=== PATIENT | male | born 1995 | race Caucasian/White ===

== ENCOUNTER 2016-08-02 23:39 | Emergency (ER) | payer OTHER ==
--- NOTE | 2016-08-03 01:04 | ED CLINICAL REPORT ---
Clinical Report - Physicians/Mid Levels [facility] [address] [place] [address] 08/02/2016 23:39 Patient: KACEY GUERRA Time Seen: 23:52. Arrived- By private vehicle. Historian- patient. HISTORY OF PRESENT ILLNESS Chief Complaint: Injury to right thigh. The injury happened just prior to arrival. Occurred at home. The patient sustained a laceration (razor). Patient is experiencing mild pain. No other injury. REVIEW OF SYSTEMS The patient sustained a single laceration to the left thigh. No chills, fever, sweats, calf pain or chest pain. No cough, difficulty breathing, pedal edema, palpitations or abdominal pain. No constipation, diarrhea, nausea, vomiting or urinary problems. All systems otherwise negative, except as recorded above. SOCIAL HISTORY Current every day light tobacco smoker (cigarette)- less than 1/2 a pack per day. History of drug use: marijuana. No alcohol use. FAMILY HISTORY No significant family medical history. ADDITIONAL NOTES The nursing notes have been reviewed. PHYSICAL EXAM Vital Signs: 08/02/2016 23:57 BP: 137/83. HR: 104. RR: 18. O2 saturation: 100%. Temp: 98.7 F. Pain level now: 0/10. Have been reviewed. Appearance: Alert. Head: Head atraumatic. Eyes: Pupils equal, round and reactive to light. ENT: Pharynx normal. Neck: Neck supple. CVS: Heart sounds normal. Respiratory: Breath sounds normal. Abdomen: No visible injury. Back: ROM normal. Skin: Skin warm and dry. Extremities: Left thigh: subcutaneous 0.5 cm laceration. SEE LACERATION PROCEDURE NOTE #1. Lower extremity exam otherwise negative. Extremities otherwise negative. Gait: Normal gait. Neuro, Vascular and Tendons: Vascular status intact. Sensation intact. Motor intact. Tendon function intact. PROGRESS AND PROCEDURES Laceration Repair: Location: left thigh. Time-out completed immediately before the procedure. Length: 0.5cm. Complexity: simple (closed with tissue adhesive). Wound depth/shape- linear. Distal neuro/vascular/tendon status normal. Prepped with Hibiclens. Wound explored and cleansed. Closure of skin. Skin adhesive used. Post-procedure: he is stable and there are no complications. Bleeding is controlled. Tetanus immunization given. Course of Care: Patient is stable. Patient/family counseled. Old medical records reviewed. Disposition: Discharged. Condition: stable. CLINICAL IMPRESSION Single superficial laceration to the left thigh. INSTRUCTIONS Warnings: COMPLICATIONS: Complications from this condition include: possible infection. Future problems may include infection, scarring and pain. TETANUS: You were given a tetanus shot during your visit. Make a note for future reference. GENERAL WARNINGS: Return or contact your physician immediately if your condition worsens or changes unexpectedly, if not improving as expected, or if other problems arise. Follow-up: Follow up with your doctor as needed. Understanding of the discharge instructions verbalized by patient. (Electronically signed by Fernando Castillo MD 08/03/2016 2:38)
--- NOTE | 2016-08-03 01:04 | ED NURSING NOTES ---
Clinical Report - Nurses [facility] [address] 08/02/2016 23:39 Patient: KACEY GUERRA TRIAGE Triage time 23:57 Aug 02 2016. Chief Complaint: INJURY TO THE LEFT THIGH. Alert. No acute distress. SEPSIS SCREEN: Sepsis Screen. Negative (no infection suspected/documented). --00:00 Jorge Ye R.N. 23:57 08/02/16. BP: 137/83. HR: 104. RR: 18. O2 saturation: 100% on room air. Temp: 98.7 F. Pain level now: 0/10. --00:00 Jorge Ye R.N. Weight: 61.2 kg stated. Height/Length: 67 inches Per Patient. BMI: 21.2. --23:57 Jorge Ye R.N. Medications None. --23:58 Jorge Ye R.N. Allergies No Known Drug Allergy. --23:58 Jorge Ye R.N. History Arrived by private vehicle. Historian: patient. This occurred today. He sustained a laceration. ( Pt sliced his thigh earlier today with a razor blade while cutting burlap and planting some trees.). Treatment APPRENTICE COSMETOLOGIST: None. PAST MEDICAL HX: Tetanus status: unknown. Immunizations: up-to-date. SOCIAL HX: Current every day light tobacco smoker- less than 1/2 a pack per day. History of drug use: marijuana. No alcohol use. No infectious disease exposure. ABUSE ASSESSMENT: No report of abuse. SELF HARM ASSESSMENT: A self harm assessment was performed. The patient answered "no" to the question "Have you recently had thoughts about harming or killing others?". FALL RISK ASSESSMENT: Fall risk assessment completed. No fall risk identified. NUTRITIONAL RISK ASSESSMENT: The nutritional risk assessment revealed no deficiencies. FUNCTIONAL ASSESSMENT: Functional assessment: no impairments noted. LEARNING NEEDS ASSESSMENT: The learning needs assessment revealed no barriers. SKIN INTEGRITY ASSESSMENT: Skin integrity risk assessment completed. No skin integrity risk identified. --00:00 Jorge Ye R.N. PROBLEMS: Abscess. --23:58 Jorge Ye R.N. Interventions ID band on patient. To treatment room. --00:00 Jorge Ye R.N. PHYSICAL ASSESSMENT Ambulatory to room. GENERAL / NEURO / PSYCH: Oriented X 4. Alert. Appears in no acute distress. EXTREMITIES: Capillary refill is less than 2 seconds in the extremities. Extremity pulses are within normal limits. Extremities exhibit normal ROM. Neuro-vascular status intact to the extremity. Normal gait. Left thigh. SKIN: Skin is warm and dry. Small superficial laceration. --00:04 Jorge Ye R.N. NURSING PROGRESS NOTES The plan of care for this patient has been created. Extremity elevated. Patient gowned. Reassurance given. Two patient identifiers checked. Call light placed in reach. Bed placed in lowest position. Patient ready for evaluation- ED physician notified. --00:04 Jorge Ye R.N. Wound cleansed with sterile saline. --00:07 Jorge Ye R.N. 00:28 08/03/2016 TDAP IM 0.5 mL given. (Lot#: [id number], expiration date: 07/13/2018, Spool Sorter: sanofi pasteur). Given in the left deltoid. Allergies verified and confirmed 5 rights. --00:28 Jorge Ye R.N. WOUND REPAIR: Wound repair performed by ED physician. The wound is located on the left thigh. The wound is linear. Preparation. Wound cleansed with sterile saline and irrigated with sterile saline. Procedure: wound repaired with skin adhesive. Post-procedure: he was stable, no complications, bleeding controlled and neuro-vascular status intact distal to wound. ( 10 minutes). --01:11 Jorge Ye R.N. 01:09 08/03/2016 TDAP IM Response: no adverse reaction. --01:14 Jorge Ye R.N. DISPOSITION / DISCHARGE 01:10 08/03/16. BP: 118/65. HR: 93. RR: 16. O2 saturation: 98% on room air. Temp: 98.4 F. Pain level now: 0/10. --01:10 Jorge Ye R.N. Departure time: 01:12 Aug 03 2016. Condition at departure: improved and stable. The goals identified in the patient's plan of care were met. No learning barriers present. Discharge instructions provided and reviewed with the patient. Patient verbalized understanding. Written instructions provided in Cypriot. The patient was discharged home. He left the Emergency Department ambulatory and via private vehicle. Patient driving. ( Pt left in stable condition, ambulatory, VSS, Pt is his own ride home.). --01:12 Jorge Ye R.N. Locked/Released at 08/03/2016 1:25 by Jorge Ye R.N.
--- NOTE | 2016-08-03 01:04 | ED CLINICAL REPORT ---
Clinical Report - Physicians/Mid Levels [facility] [address] [place] [address] 08/02/2016 23:39 Patient: KACEY GUERRA Time Seen: 23:52. Arrived- By private vehicle. Historian- patient. HISTORY OF PRESENT ILLNESS Chief Complaint: Injury to right thigh. The injury happened just prior to arrival. Occurred at home. The patient sustained a laceration (razor). Patient is experiencing mild pain. No other injury. REVIEW OF SYSTEMS The patient sustained a single laceration to the left thigh. No chills, fever, sweats, calf pain or chest pain. No cough, difficulty breathing, pedal edema, palpitations or abdominal pain. No constipation, diarrhea, nausea, vomiting or urinary problems. All systems otherwise negative, except as recorded above. SOCIAL HISTORY Current every day light tobacco smoker (cigarette)- less than 1/2 a pack per day. History of drug use: marijuana. No alcohol use. FAMILY HISTORY No significant family medical history. ADDITIONAL NOTES The nursing notes have been reviewed. PHYSICAL EXAM Vital Signs: 08/02/2016 23:57 BP: 137/83. HR: 104. RR: 18. O2 saturation: 100%. Temp: 98.7 F. Pain level now: 0/10. Have been reviewed. Appearance: Alert. Head: Head atraumatic. Eyes: Pupils equal, round and reactive to light. ENT: Pharynx normal. Neck: Neck supple. CVS: Heart sounds normal. Respiratory: Breath sounds normal. Abdomen: No visible injury. Back: ROM normal. Skin: Skin warm and dry. Extremities: Left thigh: subcutaneous 0.5 cm laceration. SEE LACERATION PROCEDURE NOTE #1. Lower extremity exam otherwise negative. Extremities otherwise negative. Gait: Normal gait. Neuro, Vascular and Tendons: Vascular status intact. Sensation intact. Motor intact. Tendon function intact. PROGRESS AND PROCEDURES Laceration Repair: Location: left thigh. Time-out completed immediately before the procedure. Length: 0.5cm. Complexity: simple (closed with tissue adhesive). Wound depth/shape- linear. Distal neuro/vascular/tendon status normal. Prepped with Hibiclens. Wound explored and cleansed. Closure of skin. Skin adhesive used. Post-procedure: he is stable and there are no complications. Bleeding is controlled. Tetanus immunization given. Course of Care: Patient is stable. Patient/family counseled. Old medical records reviewed. Disposition: Discharged. Condition: stable. CLINICAL IMPRESSION Single superficial laceration to the left thigh. INSTRUCTIONS Warnings: COMPLICATIONS: Complications from this condition include: possible infection. Future problems may include infection, scarring and pain. TETANUS: You were given a tetanus shot during your visit. Make a note for future reference. GENERAL WARNINGS: Return or contact your physician immediately if your condition worsens or changes unexpectedly, if not improving as expected, or if other problems arise. Follow-up: Follow up with your doctor as needed. Understanding of the discharge instructions verbalized by patient. (Electronically signed by Fernando Castillo MD 08/03/2016 2:38)
--- NOTE | 2016-08-03 01:04 | ED ORDER SUMMARY ---
..... Patient: KACEY GUERRA OrderSheet [facility] VisitID: [id number] [address] [place] [address] 21y, M Registration Date/Time: 08/02/2016 ORDER SHEET Weight: 61.2 kg (stated) Allergies: No Known Drug Allergy GENERAL ORDERS: MEDICATION ORDERS: Tdap IM 0.5 mL (per protocol) (00:22 08/03/2016 MCook R.N. per protocol) (Ack 0:22 MCook R.N.) (0:28 MCook R.N.) Tdap IM 0.5 mL (NOW) (00:59 08/03/2016 Robert BARBOSA) (Cancelled: Other0:59 Robert BARBOSA) IV FLUIDS: ORDER SHEET NOTES: [Electronically signed by Jorge Ye R.N. (:08/03/2016)] [Electronically signed by Fernando Castillo MD (02:38 08/03/2016)] [Electronically locked/signed by Jorge Ye R.N. (:08/03/2016)]
--- NOTE | 2016-08-03 01:04 | ED ORDER SUMMARY ---
..... Patient: KACEY GUERRA OrderSheet [facility] VisitID: [id number] [address] [place] [address] 21y, M Registration Date/Time: 08/02/2016 ORDER SHEET Weight: 61.2 kg (stated) Allergies: No Known Drug Allergy GENERAL ORDERS: MEDICATION ORDERS: Tdap IM 0.5 mL (per protocol) (00:22 08/03/2016 MCook R.N. per protocol) (Ack 0:22 MCook R.N.) (0:28 MCook R.N.) Tdap IM 0.5 mL (NOW) (00:59 08/03/2016 Robert BARBOSA) (Cancelled: Other0:59 Robert BARBOSA) IV FLUIDS: ORDER SHEET NOTES: [Electronically signed by Jorge Ye R.N. (:08/03/2016)] [Electronically signed by Fernando Castillo MD (02:38 08/03/2016)] [Electronically locked/signed by Jorge Ye R.N. (:08/03/2016)]
--- NOTE | 2016-08-03 01:04 | ED NURSING NOTES ---
Clinical Report - Nurses [facility] [place] [address] 08/02/2016 23:39 Patient: KACEY GUERRA TRIAGE Triage time 23:57 Aug 02 2016. Chief Complaint: INJURY TO THE LEFT THIGH. Alert. No acute distress. SEPSIS SCREEN: Sepsis Screen. Negative (no infection suspected/documented). --00:00 Jorge Ye R.N. 23:57 08/02/16. BP: 137/83. HR: 104. RR: 18. O2 saturation: 100% on room air. Temp: 98.7 F. Pain level now: 0/10. --00:00 Jorge Ye R.N. Weight: 61.2 kg stated. Height/Length: 67 inches Per Patient. BMI: 21.2. --23:57 Jorge Ye R.N. Medications None. --23:58 Jorge Ye R.N. Allergies No Known Drug Allergy. --23:58 Jorge Ye R.N. History Arrived by private vehicle. Historian: patient. This occurred today. He sustained a laceration. ( Pt sliced his thigh earlier today with a razor blade while cutting burlap and planting some trees.). Treatment DIE SET UP WORKER: None. PAST MEDICAL HX: Tetanus status: unknown. Immunizations: up-to-date. SOCIAL HX: Current every day light tobacco smoker- less than 1/2 a pack per day. History of drug use: marijuana. No alcohol use. No infectious disease exposure. ABUSE ASSESSMENT: No report of abuse. SELF HARM ASSESSMENT: A self harm assessment was performed. The patient answered "no" to the question "Have you recently had thoughts about harming or killing others?". FALL RISK ASSESSMENT: Fall risk assessment completed. No fall risk identified. NUTRITIONAL RISK ASSESSMENT: The nutritional risk assessment revealed no deficiencies. FUNCTIONAL ASSESSMENT: Functional assessment: no impairments noted. LEARNING NEEDS ASSESSMENT: The learning needs assessment revealed no barriers. SKIN INTEGRITY ASSESSMENT: Skin integrity risk assessment completed. No skin integrity risk identified. --00:00 Jorge Ye R.N. PROBLEMS: Abscess. --23:58 Jorge Ye R.N. Interventions ID band on patient. To treatment room. --00:00 Jorge Ye R.N. PHYSICAL ASSESSMENT Ambulatory to room. GENERAL / NEURO / PSYCH: Oriented X 4. Alert. Appears in no acute distress. EXTREMITIES: Capillary refill is less than 2 seconds in the extremities. Extremity pulses are within normal limits. Extremities exhibit normal ROM. Neuro-vascular status intact to the extremity. Normal gait. Left thigh. SKIN: Skin is warm and dry. Small superficial laceration. --00:04 Jorge Ye R.N. NURSING PROGRESS NOTES The plan of care for this patient has been created. Extremity elevated. Patient gowned. Reassurance given. Two patient identifiers checked. Call light placed in reach. Bed placed in lowest position. Patient ready for evaluation- ED physician notified. --00:04 Jorge Ye R.N. Wound cleansed with sterile saline. --00:07 Jorge Ye R.N. 00:28 08/03/2016 TDAP IM 0.5 mL given. (Lot#: [id number], expiration date: 07/13/2018, Carbon Coater Machine Operator: sanofi pasteur). Given in the left deltoid. Allergies verified and confirmed 5 rights. --00:28 Jorge Ye R.N. WOUND REPAIR: Wound repair performed by ED physician. The wound is located on the left thigh. The wound is linear. Preparation. Wound cleansed with sterile saline and irrigated with sterile saline. Procedure: wound repaired with skin adhesive. Post-procedure: he was stable, no complications, bleeding controlled and neuro-vascular status intact distal to wound. ( 10 minutes). --01:11 Jorge Ye R.N. 01:09 08/03/2016 TDAP IM Response: no adverse reaction. --01:14 Jorge Ye R.N. DISPOSITION / DISCHARGE 01:10 08/03/16. BP: 118/65. HR: 93. RR: 16. O2 saturation: 98% on room air. Temp: 98.4 F. Pain level now: 0/10. --01:10 Jorge Ye R.N. Departure time: 01:12 Aug 03 2016. Condition at departure: improved and stable. The goals identified in the patient's plan of care were met. No learning barriers present. Discharge instructions provided and reviewed with the patient. Patient verbalized understanding. Written instructions provided in Cymraes. The patient was discharged home. He left the Emergency Department ambulatory and via private vehicle. Patient driving. ( Pt left in stable condition, ambulatory, VSS, Pt is his own ride home.). --01:12 Jorge Ye R.N. Locked/Released at 08/03/2016 1:25 by Jorge Ye R.N.
--- NOTE | 2016-08-03 02:38 | ED MED RECONCILIATION SUMMARY ---
Patient: KACEY GUERRA Medication Reconciliation Report [facility] VisitID: [id number] [address] [place] [address] 21y, M Registration Date/Time: 08/02/2016 Weight: 61.2 kg Height/Length: 67 in. BMI: 21.2 ALLERGIES: No Known Drug Allergy The patient's Home Medications are listed below: NONE. The source(s) of the original Home Medication information: Not obtained. The following Medications were given to the patient in the Emergency Department: TDAP [IM] IM 0.5 mL, administered: 08/03/2016 12:28:00 AM The following Medications were prescribed to the patient: None.
--- NOTE | 2016-08-03 02:38 | ED MAR SUMMARY ---
..... Medication Administration Record [facility] [address] [place] [address] Patient: KACEY GUERRA Visit ID: [id number] 21y, M Weight: 61.2 kg Height/Length: 67 in BMI: 21.2 ALLERGIES: No Known Drug Allergy Given 00:28 08/03/2016 Jorge Ye R.N. Medication Administered: TDAP [IM], Dose: 0.5 mL IM. Medication Ordered: Tdap IM 0.5 mL (per protocol).
--- NOTE | 2016-08-03 02:38 | ED MAR SUMMARY ---
..... Medication Administration Record [facility] [address] [place] [address] Patient: KACEY GUERRA Visit ID: [id number] 21y, M Weight: 61.2 kg Height/Length: 67 in BMI: 21.2 ALLERGIES: No Known Drug Allergy Given 00:28 08/03/2016 Jorge Ye R.N. Medication Administered: TDAP [IM], Dose: 0.5 mL IM. Medication Ordered: Tdap IM 0.5 mL (per protocol).
--- NOTE | 2016-08-03 02:38 | ED DISCHARGE INSTRUCTIONS ---
Patient: KACEY GUERRA General Instructions [facility] VisitID: [id number] [place] [address] 21y, M Registration Date/Time: 08/02/2016 Single superficial laceration to the left thigh. INSTRUCTIONS Warnings: COMPLICATIONS: Complications from this condition include: possible infection. Future problems may include infection, scarring and pain. TETANUS: You were given a tetanus shot during your visit. Make a note for future reference. GENERAL WARNINGS: Return or contact your physician immediately if your condition worsens or changes unexpectedly, if not improving as expected, or if other problems arise. Follow-up: Follow up with your doctor as needed. Understanding of the discharge instructions verbalized by patient. ADDITIONAL INFORMATION Laceration(Skin Glue) A laceration is a cut through the skin. You have a laceration that has been closed with a type of skin glue. Home Care Medications: Acetaminophen (Tylenol) or ibuprofen (Motrin, Advil) may be taken for pain, unless another pain medicine was prescribed. NOTE: If you have chronic liver or kidney disease or ever had a stomach ulcer or GI bleeding, talk with your doctor before using these medications. General Care: Keep the wound clean and dry. You may shower or bathe as usual, but do not use soaps, lotions, or ointments on the wound area. Do not scrub the wound. After bathing, pat the wound dry with a soft towel. If a bandage was applied and it becomes wet or dirty, replace it. Otherwise, change the bandage every 24 hours. Do not scratch, rub, or pick at the film. Do not place tape directly over the film. Do not apply liquids (such as peroxide), ointments, or creams to the wound while the film is in place. Most skin wounds heal without problems. However, an infection sometimes occurs despite proper treatment. Therefore, watch for the signs of infection listed below. Follow Up as directed by the doctor or our staff. The skin glue film will fall off naturally in 5 to 10 days. Get Prompt Medical Attention if any of the following occur: Signs of infection: Fever of 100.4F (38C) or higher, or as directed by your healthcare provider Increasing pain in the wound Increasing redness or swelling Pus coming from the wound Wound bleeds more than a small amount or bleeding doesnt stop Wound edges come apart You feel numbness or weakness in the wound area that doesnt go away Diphtheria Toxoid Adsorbed, Pertussis Vaccine, Acellular (Adsorbed), Tetanus Toxoid, Adsorbed Suspension for injection What is this medicine? DIPHTHERIA and TETANUS TOXOIDS; PERTUSSIS VACCINE (dif THEER ee uh and TET n us TOK soids; per TUS iss vak SEEN) is used to prevent diphtheria, tetanus, and pertussis infections. How should I use this medicine? This vaccine is for injection into a muscle. It is given by a health child caregiver. A copy of Vaccine Information Statements will be given before each vaccination. Read this sheet carefully each time. The sheet may change frequently. Talk to your hog scalder regarding the use of this vaccine in children. While the DTP vaccine may be given to children ages 6 weeks to 7 years and the Tdap vaccine may be given to children at least 10 years old, precautions do apply. What side effects may I notice from receiving this medicine? Side effects that you should report to your doctor or health child caregiver as soon as possible: allergic reactions like skin rash, itching or hives, swelling of the face, lips, or tongue breathing problems fever of 103 degrees F or more flu-like symptoms inconsolable crying infection pain, tingling, numbness in the hands or feet seizures swelling of arm or leg that was injected unusually weak or tired Side effects that usually do not require immediate medical attention (report these side effects to your doctor or health child caregiver if they continue or are bothersome): fussy, irritable loss of appetite fever of 102 degrees F or less pain, tenderness, redness, swelling, or a 'knot' at site where injected vomiting What may interact with this medicine? immune globulin medicines that suppress your immune function like adalimumab, anakinra, infliximab medicines to treat cancer medicines that treat or prevent blood clots like warfarin, enoxaparin, and dalteparin steroid medicines like prednisone or cortisone What if I miss a dose? It is important not to miss your dose. Call your doctor or health child caregiver if you are unable to keep an appointment. Where should I keep my medicine? This drug is given in a hospital or clinic and will not be stored at home. What should I tell my health care provider before I take this medicine? They need to know if you have any of these conditions: blood disorders like hemophilia fever or infection immune system problems neurologic disease seizures an unusual or allergic reaction to vaccines, thimerosal, latex, other medicines, foods, dyes, or preservatives or trying to get breast-feeding What should I watch for while using this medicine? See your health care provider for all shots of this vaccine as directed. To have protection from infection, you must have 3 shots of this vaccine plus boosters as needed. Tell your doctor right away if you have any serious or unusual side effects after getting this vaccine. You have been given the following additional information: Laceration, Extremity (Skin Glue) Diphtheria Toxoid Adsorbed, Pertussis Vaccine, Acellular (Adsorbed), Tetanus Toxoid, Adsorbed Suspension for injection (Electronically signed by Fernando Castillo MD 08/03/2016 2:38)
--- NOTE | 2016-08-03 02:38 | ED MED RECONCILIATION SUMMARY ---
Patient: KACEY GUERRA Medication Reconciliation Report [facility] VisitID: [id number] [address] [place] [address] 21y, M Registration Date/Time: 08/02/2016 Weight: 61.2 kg Height/Length: 67 in. BMI: 21.2 ALLERGIES: No Known Drug Allergy The patient's Home Medications are listed below: NONE. The source(s) of the original Home Medication information: Not obtained. The following Medications were given to the patient in the Emergency Department: TDAP [IM] IM 0.5 mL, administered: 08/03/2016 12:28:00 AM The following Medications were prescribed to the patient: None.
--- NOTE | 2016-08-03 02:38 | ED DISCHARGE INSTRUCTIONS ---
Patient: KACEY GEURRA General Instructions [facility] VisitID: [id number] [place] [address] 21y, M Registration Date/Time: 08/02/2016 Single superficial laceration to the left thigh. INSTRUCTIONS Warnings: COMPLICATIONS: Complications from this condition include: possible infection. Future problems may include infection, scarring and pain. TETANUS: You were given a tetanus shot during your visit. Make a note for future reference. GENERAL WARNINGS: Return or contact your physician immediately if your condition worsens or changes unexpectedly, if not improving as expected, or if other problems arise. Follow-up: Follow up with your doctor as needed. Understanding of the discharge instructions verbalized by patient. ADDITIONAL INFORMATION Laceration(Skin Glue) A laceration is a cut through the skin. You have a laceration that has been closed with a type of skin glue. Home Care Medications: Acetaminophen (Tylenol) or ibuprofen (Motrin, Advil) may be taken for pain, unless another pain medicine was prescribed. NOTE: If you have chronic liver or kidney disease or ever had a stomach ulcer or GI bleeding, talk with your doctor before using these medications. General Care: Keep the wound clean and dry. You may shower or bathe as usual, but do not use soaps, lotions, or ointments on the wound area. Do not scrub the wound. After bathing, pat the wound dry with a soft towel. If a bandage was applied and it becomes wet or dirty, replace it. Otherwise, change the bandage every 24 hours. Do not scratch, rub, or pick at the film. Do not place tape directly over the film. Do not apply liquids (such as peroxide), ointments, or creams to the wound while the film is in place. Most skin wounds heal without problems. However, an infection sometimes occurs despite proper treatment. Therefore, watch for the signs of infection listed below. Follow Up as directed by the doctor or our staff. The skin glue film will fall off naturally in 5 to 10 days. Get Prompt Medical Attention if any of the following occur: Signs of infection: Fever of 100.4F (38C) or higher, or as directed by your healthcare provider Increasing pain in the wound Increasing redness or swelling Pus coming from the wound Wound bleeds more than a small amount or bleeding doesnt stop Wound edges come apart You feel numbness or weakness in the wound area that doesnt go away Diphtheria Toxoid Adsorbed, Pertussis Vaccine, Acellular (Adsorbed), Tetanus Toxoid, Adsorbed Suspension for injection What is this medicine? DIPHTHERIA and TETANUS TOXOIDS; PERTUSSIS VACCINE (dif THEER ee uh and TET n us TOK soids; per TUS iss vak SEEN) is used to prevent diphtheria, tetanus, and pertussis infections. How should I use this medicine? This vaccine is for injection into a muscle. It is given by a health child care aide. A copy of Vaccine Information Statements will be given before each vaccination. Read this sheet carefully each time. The sheet may change frequently. Talk to your pre coder regarding the use of this vaccine in children. While the DTP vaccine may be given to children ages 6 weeks to 7 years and the Tdap vaccine may be given to children at least 10 years old, precautions do apply. What side effects may I notice from receiving this medicine? Side effects that you should report to your doctor or health child care aide as soon as possible: allergic reactions like skin rash, itching or hives, swelling of the face, lips, or tongue breathing problems fever of 103 degrees F or more flu-like symptoms inconsolable crying infection pain, tingling, numbness in the hands or feet seizures swelling of arm or leg that was injected unusually weak or tired Side effects that usually do not require immediate medical attention (report these side effects to your doctor or health child care aide if they continue or are bothersome): fussy, irritable loss of appetite fever of 102 degrees F or less pain, tenderness, redness, swelling, or a 'knot' at site where injected vomiting What may interact with this medicine? immune globulin medicines that suppress your immune function like adalimumab, anakinra, infliximab medicines to treat cancer medicines that treat or prevent blood clots like warfarin, enoxaparin, and dalteparin steroid medicines like prednisone or cortisone What if I miss a dose? It is important not to miss your dose. Call your doctor or health child care aide if you are unable to keep an appointment. Where should I keep my medicine? This drug is given in a hospital or clinic and will not be stored at home. What should I tell my health care provider before I take this medicine? They need to know if you have any of these conditions: blood disorders like hemophilia fever or infection immune system problems neurologic disease seizures an unusual or allergic reaction to vaccines, thimerosal, latex, other medicines, foods, dyes, or preservatives or trying to get breast-feeding What should I watch for while using this medicine? See your health care provider for all shots of this vaccine as directed. To have protection from infection, you must have 3 shots of this vaccine plus boosters as needed. Tell your doctor right away if you have any serious or unusual side effects after getting this vaccine. You have been given the following additional information: Laceration, Extremity (Skin Glue) Diphtheria Toxoid Adsorbed, Pertussis Vaccine, Acellular (Adsorbed), Tetanus Toxoid, Adsorbed Suspension for injection (Electronically signed by Fernando Castillo MD 08/03/2016 2:38)
== END 2016-08-03 01:13 | disposition home or self-care (01) ==
LOC: ED SRH 23:39
DX: S71.112A Laceration without foreign body, left thigh, initial encounter (principal); W27.8XXA Contact with other nonpowered hand tool, initial encounter; Y93.9 Activity, unspecified; Y92.009 Unspecified place in unspecified non-institutional (private) residence as the place of occurrence of the external cause; Y99.9 Unspecified external cause status; F17.210 Nicotine dependence, cigarettes, uncomplicated; F12.10 Cannabis abuse, uncomplicated
CPT/HCPCS: 82708